=== PATIENT | female | born 1985 | race Caucasian/White ===

== ENCOUNTER → 2019-02-26 | Outpatient (CLI) | payer MEDICAID ==
--- OUTSIDE RECORDS SUMMARY | 2019-03-09 12:12 | XMSREPORT | Referral Summary ---
:[address] [facility] Address [address] [place] [address] Care Team Providers Name Role Phone Kulwinder Trevino PA-C Attributed Provider Jillian Macias MD Insurance Required Kulwinder Trevino PA-C Primary Care Provider Reason for Referral Transitions of Care (Routine) Status Reason Specialty Diagnoses / Referred By Referred To Procedures Contact Contact Authorized Patient Diagnoses Closed boxer's fracture with delayed healing, subsequent encounter Ninfa Hinojosa Chi Preference M, PA-C [place], [address] [place], [place] [address] [facility] [id number] [place] [address] Phone: [phone] Phone: Encounter Details Date Type Department Care Team Description 03/02/2019 Orders Only [facility] Ninfa Hinojosa, Closed displaced fracture of fifth metacarpal bone of right hand with delayed healing, unspecified portion of metacarpal, subsequent encounter (Primary Dx); [facility] Closed boxer's fracture with delayed healing, subsequent encounter [address] [place] [address] [place] [address] [phone] Allergies Active Allergy Reactions Severity Noted Date Comments Peanut Oil Anaphylaxis (High) High 03/02/2015 documented as of this encounter (statuses as of 03/03/2019) Medications Medication Sig Dispensed Refills Start Date End Date Status acetaminophen Take by mouth 0 Active (TYLENOL) 500 mg every 4 to 6 hours tablet as needed. albuterol HFA Inhale 1-2 puffs 1 Inhaler 0 01/30/2018 Active (PROVENTIL,PROAIR,VENT orally Every 4 LEN) 108 (90 Base) hours as needed MCG/ACT for shortness of inhalerIndications: breath, wheezing Mild intermittent or cough Shake asthma without well before using. complication EPINEPHrine Inject as needed 1 Device 0 03/20/2018 Active auto-injection device for allergic 0.3 mg/0.3 mL IM reaction. injectionIndications: Environmental allergies lamoTRIgine Take 2 tablets 0 11/06/2018 Active (LAMICTAL-XR) 100 mg (200 mg) by mouth extended release 1 time per day tablet (24 hr) clonazePAM (KLONOPIN) Take 1 tablet (1 0 11/06/2018 Active 1 mg tablet mg) by mouth 2 times a day [facility] ADVAIR DISKUS 500-50 INHALE 1 PUFF 60 each 4 11/27/2018 Active MCG/DOSE TWICE A DAY discusIndications: Mild intermittent asthma without complication predniSONE 20 mg Take 1 tablet (20 3 tablet 0 12/22/2018 Active tabletIndications: mg) by mouth 1 Bronchitis, Mild time per day intermittent asthma without complication norgestimate-ethinyl TAKE 1 TABLET BY 28 tablet 0 02/18/2019 Active estradiol MOUTH 1 TIME PER (TRI-SPRINTEC) DAY 0.18/0.215/0.25 MG-35 MCG tabletIndications: Encounter for contraceptive management, unspecified type documented as of this encounter (statuses as of 03/03/2019) Active Problems Problem Noted Date Medullary sponge kidney 12/02/2018 Constipation 11/26/2018 Borderline personality disorder 11/26/2018 Mood disorder 11/26/2018 Nephrocalcinosis 10/06/2018 Mild persistent asthma without complication 03/15/2017 Nephrolithiasis 06/30/2014 documented as of this encounter (statuses as of 03/03/2019) Resolved Problems Problem Noted Date Resolved Date Urinary tract infection, recurrent 04/27/2013 11/26/2018 Urinary frequency 06/05/2010 11/26/2018 state, incidental 01/26/2010 02/23/2013 documented as of this encounter (statuses as of 03/03/2019) Immunizations Name Administration Dates Next Due DTP 11/17/1991 HEP B, peds/adol 07/26/1999, 03/15/1999, 1999 Influenza Vaccine,unspecified 01/09/2013, 01/17/2012, 02/28/2011, 01/26/2010, 12/24/2008, 02/06/2008, 01/31/2007, 02/17/2003 MMR 11/17/1991, 05/12/1987 OPV 11/17/1991 TDAP 03/11/2013 Td 03/15/1999 documented as of this encounter Social History Tobacco Use Types Packs/Day Years Used Date Never Smoker Smokeless Tobacco: Never Used Alcohol Use Drinks/Week oz/Week Comments Yes 0 Cans of beer 0.0 Occassional-Social Sexually Active Control Partners Comments Yes Male Sex Assigned at Date Recorded Not on file Job Start Date Occupation Industry Not on file Not on file Not on file Travel History Travel Start Travel End No recent travel history available. documented as of this encounter Functional Status Functional Status Response Date of Assessment Do you have difficulty with walking, balance, climbing No 09/28/2016 stairs, or had a fall in the last 3 months? documented as of this encounter Plan of Treatment Name Type Priority Associated Diagnoses Order Schedule CLINIC REFERRAL Referral Routine Closed boxer's fracture Ordered: 2018 ORTHOPEDICS NON ONE with delayed healing, CHART subsequent encounter documented as of this encounter Visit Diagnoses Diagnosis Closed displaced fracture of fifth metacarpal bone of right hand with delayed healing, unspecified portion of metacarpal, subsequent encounter - Primary Closed boxer's fracture with delayed healing, subsequent encounter documented in this encounter
== END ==
LOC: LL.DI 08:46
PROVIDERS: ATTEND Physician Assistant
DX: S62.306G Unspecified fracture of fifth metacarpal bone, right hand, subsequent encounter for fracture with delayed healing (principal); X58.XXXD Exposure to other specified factors, subsequent encounter
CPT/HCPCS: 73130-RT

== ENCOUNTER 2020-08-12 18:11 | Emergency (ER) | payer MEDICAID ==
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
== END 2020-08-12 18:48 | disposition home or self-care (01) ==
LOC: LL.ED 18:11
DX: S02.2XXA Fracture of nasal bones, initial encounter for closed fracture (principal); S00.12XA Contusion of left eyelid and periocular area, initial encounter; S10.93XA Contusion of unspecified part of neck, initial encounter; F41.8 Other specified anxiety disorders; F19.90 Other psychoactive substance use, unspecified, uncomplicated; Z91.010 Allergy to peanuts; Z87.891 Personal history of nicotine dependence; Y04.2XXA Assault by strike against or bumped into by another person, initial encounter; Y92.009 Unspecified place in unspecified non-institutional (private) residence as the place of occurrence of the external cause
CPT/HCPCS: 70150; 99284; 99284-25

== ENCOUNTER 2021-07-01 01:13 | Emergency (ER) | payer MEDICAID ==
[2021-07-01] MEDS ORDERED: Sodium Chloride 0.9% 10 ML Syringe FLUSH PRN (01:42)
[2021-07-01] MEDS ORDERED: Sodium Chloride 0.9% 1,000 ML IV ONE ×2 (01:42→03:20)
[2021-07-01] MEDS ORDERED: Ondansetron 4 MG/2 ML SDV IVPUSH ONE (01:42)
[2021-07-01] MEDS ORDERED: Ketorolac 15 MG/ML SDV IVPUSH ONE (01:43)
[2021-07-01 02:19] LABS: ANION GAP 9.6 meq/L (7-15); CHLORIDE,CL 102 mmol/L (98-107); SODIUM,NA 139 mmol/L (136-145)
[2021-07-01] MEDS ORDERED: Iopamidol 612 MG/ML 100 ML Bottle IVPUSH ONE (02:29)
[2021-07-01] MEDS ORDERED: traMADol 50 MG Tab PO ONE (04:06)
[2021-07-01] MEDS ORDERED: methylPREDNISolone Sodium Succinate 125 MG/2 ML SDV IVPUSH ONE (04:06)
[2021-07-01] MEDS ORDERED: Lactulose Soln 10 GM/15 ML 30 ML UD Cup PO ONE (04:13)
[2021-07-01] MEDS ORDERED: Magnesium Citrate Solution 296 ML Bottle PO ONE (04:21)
== END 2021-07-01 04:50 | disposition home or self-care (01) ==
LOC: LL.ED 01:13
DX: R07.89 Other chest pain (principal); R10.11 Right upper quadrant pain; Z91.010 Allergy to peanuts
CPT/HCPCS: 36415; 74160; 80053; 81001; 82150; 83605; 83690; 84484; 85025; 96374; 96375; 99284; 99284-25; A9270-GY; J1885; J2405; J2930; J7030; Q9967

== ENCOUNTER 2021-07-03 09:24 | Emergency (ER) | payer MEDICAID ==
[2021-07-03] MEDS ORDERED: Lactated Ringers 1,000 ML IV ONE (09:46)
[2021-07-03 10:25] LABS: CHLORIDE,CL 104 mmol/L (98-107); SODIUM,NA 139 mmol/L (136-145)
[2021-07-03 10:28] LABS: ANION GAP 11.4 meq/L (7-15)
[2021-07-03] MEDS ORDERED: Acetaminophen 500 MG Tab PO ONE (11:33)
[2021-07-03 12:03] LABS: BARBITURATE SCREEN,URINE NEGATIVE (NEGATIVE); BENZODIAZEPINES SCREEN,URINE NEGATIVE (NEGATIVE); EDDP,URINE SCREEN NEGATIVE (NEGATIVE); TCA SCREEN,URINE POSITIVE (NEGATIVE); THC SCREEN,URINE 50 NG/ML POSITIVE (NEGATIVE)
[2021-07-03 12:05] LABS: BUPRENORPHINE SCREEN,URINE NEGATIVE (NEGATIVE)
[2021-07-03] MEDS ORDERED: Metoclopramide 10 MG/2 ML SDV IVPUSH ONE (12:11)
[2021-07-03] MEDS ORDERED: diphenhydrAMINE 50 MG/ML SDV IVPUSH ONE (12:11)
[2021-07-03] MEDS ORDERED: Ketorolac 30 MG/ML SDV IVPUSH ONE (12:11)
[2021-07-03] MEDS ORDERED: Meclizine 25 MG Tab PO ONE (12:15)
[2021-07-03] MEDS ORDERED: Sodium Chloride 0.9% 1,000 ML IV SCH (12:15)
[2021-07-03] MEDS: Sodium Chloride 0.9% 10 ML Syringe FLUSH PRN ×2 (12:26→12:27)
== END 2021-07-03 14:20 | disposition home or self-care (01) ==
LOC: LL.ED 09:24
DX: I49.8 Other specified cardiac arrhythmias (principal); G43.809 Other migraine, not intractable, without status migrainosus; Z91.010 Allergy to peanuts
CPT/HCPCS: 36415; 71045; 80053; 80305-QW; 81001; 81025; 83605; 84484; 85025; 85379; 85610; 85730; 86140; 87086; 93005; 93010; 96374; 96375; 99284; 99284-25; A9270-GY; J1200; J1885; J2765; J3490; J7030; J7120